=== PATIENT | female | born 1970 | race Caucasian/White ===

== ENCOUNTER 2021-05-13 17:39 | Emergency (ER) | payer BC ==
[~2021-05-13] VITALS: Ht 170.2 cm; Wt 124.7 kg
[~2021-05-13 17:39] MED LIST: CLARITIN10 MG PO; COPAXONE20 MG/1 ML SQ; LISINOPRIL-HCT1 EACH PO; SUDAFED30 MG PO; TYLENOL WITH C1 EACH PO; VITAMIN D250000 UNIT PO
== END 2021-05-13 21:00 | disposition home or self-care (01) ==
LOC: ED 17:39
DX: U07.1 COVID-19 (principal); J40 Bronchitis, not specified as acute or chronic; I10 Essential (primary) hypertension; Z87.891 Personal history of nicotine dependence; Z79.899 Other long term (current) drug therapy
CPT/HCPCS: 99284-25; M0243; Q0244

== ENCOUNTER 2022-05-24 05:56 | Day surgery (SDC) | payer BC ==
[~2022-05-24] VITALS: Ht 170.2 cm; Wt 136.4 kg
--- NOTE | 2022-05-24 08:03 | NUR ---
05/24/22 0803 Smitha Martinez 0754- PT ARRIVES TO PACU NONAROUSABLE TO NOXIOUS STIMULI WITH AN OPA IN PLACE. RESP EVEN AND UNLABORED. OXYGEN SAT HIGH 90'S TO 100% ON 10L VIA MASK. 0756- OXYGEN TITRATED DOWN TO 6L VIA MASK.
--- NOTE | 2022-05-24 09:30 | OR ---
[facility] [address], [place] [address] Signed DATE OF OPERATION: 05/24/2022 SURGEON: Hadley Irizarry MD PREOPERATIVE DIAGNOSES: 1. Maternal grandmother with colon cancer in her late 70s. 2. Mother with colon polyps in her 60s. POSTOPERATIVE DIAGNOSIS: Minimal to moderate internal hemorrhoids. PROCEDURE: Colonoscopy without biopsy. ESTIMATED BLOOD LOSS: None. INDICATIONS: Evie is a 51-year-old obese female with multiple sclerosis, requiring a cane to help ambulate. She was asked to see me for her initial colonoscopy. Her maternal grandmother had colon cancer in her late 70s. Her mother has had colonic polyps removed in her 60s. She has gone back every 2 to 3 years to have additional colonic polyps removed. Evie has no lower GI complaints. In addition, she has a very full face with a heavy chest and abdomen. We asked that she had monitored anesthesia care given those findings. She also has significant postoperative nausea and vomiting. She said the scopolamine patch really helps. We gave her that scopolamine patch today. In the office, I had given her a pamphlet on colonoscopy. She understands the nature of the test. There is risk including, but not limited to gas bloating, crampy abdominal pain, bleeding, perforation requiring surgery, and missed diagnosis. She had expressed understanding and wished to proceed. PROCEDURE NOTE: Evie was taken into our endoscopy suite and placed in the left lateral decubitus position. She was given IV sedation with propofol per our nurse strategic partnership representative. A digital rectal exam was performed and this was unremarkable. She has good sphincter tone. No external hemorrhoids. The adult colonoscope was introduced and advanced under direct visualization of the camera. It took some extra propofol and a little abdominal compression in order to advance the scope into the cecum itself. Her prep was quite excellent. We could easily see the appendiceal orifice and the ileocecal valve. The scope was then slowly withdrawn. We took pictures throughout for photodocumentation. Electronically Signed By: HADLEY IRIZARRY MD 05/24/22 0930 PATIENT NAME: EVIE ECHEVERRIA OPERATIVE REPORT DATE OF : 68 REPORT #: [id number] PHYSICIAN: HADLEY IRIZARRY MD PCP: BONG MILLER MD REPORT IS CONFIDENTIAL AND NOT TO BE RELEASED WITHOUT AUTHORIZATION [facility] [address], [place] [address] Signed No pathology throughout the entire colon or rectum. Upon retroflexion of the scope, she does have minimal to moderate internal hemorrhoid columns. After this, the gas was suctioned out and the colonoscope removed. Evie tolerated the procedure quite well. RECOMMENDATIONS: Evie can return in 5 years for repeat colonoscopy given her family history. Hadley Irizarry MD ALB/MODL /[id number] cc: MD Hadley Ward MD Copies: BONG MILLER MD, ANDREW L MD ~ Electronically Signed By: HADLEY IRIZARRY MD 05/24/22 0930 PATIENT NAME: EVIE ECHEVERRIA OPERATIVE REPORT DATE OF : 68 REPORT #: [id number] PHYSICIAN: HADLEY IRIZARRY MD PCP: BONG MILLER MD REPORT IS CONFIDENTIAL AND NOT TO BE RELEASED WITHOUT AUTHORIZATION
--- NOTE | 2022-05-24 10:34 | NUR ---
PT ALERT,ORIENTED AND HERE FOR HER FIRST SCOPE. PT SEEMED TO DEAL WITH PREP APPROPRIATELY, ALL QUESTIONS ASKED ANSWERED. PT REQUESTED PRAYER, HER AUNT WILL BE HERE AT [place] FOR RIDE. WILL FOLLOW NEEDED
== END 2022-05-24 08:34 | disposition home or self-care (01) ==
LOC: DS 05:56 → OPS 05:56 → DS 07:30 → OPS 07:30 → DS 09:00
PROVIDERS: ATTEND Colon & Rectal Surgery
PROC: 0DJD8ZZ Inspection of Lower Intestinal Tract, Via Natural or Artificial Opening Endoscopic (ICD-10-PCS; principal; 2022-05-24 07:30)
DX: Z12.11 Encounter for screening for malignant neoplasm of colon (principal); K64.8 Other hemorrhoids; G35 Multiple sclerosis; I10 Essential (primary) hypertension; E66.9 Obesity, unspecified; Z80.0 Family history of malignant neoplasm of digestive organs; Z83.71 Family history of colonic polyps
CPT/HCPCS: J2405; J2704; J7121

== ENCOUNTER 2023-07-18 12:21 | Observation (INO) | payer BC ==
[~2023-07-18] VITALS: Ht 170.2 cm; Wt 133.1 kg
[2023-07-18] VITALS (11 sets, daily range): BP systolic 119–151; BP diastolic 63–102
[~2023-07-18 12:21] MED LIST changes: +GABAPENTIN300 MG PO; +GLATIRAMER40 MG/1 ML SUB-Q
--- OUTSIDE RECORDS SUMMARY | 2023-07-18 12:25 | XMS ---
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 ENick VISIT COUNT (12 MO.) 2 [facility] TOTAL 2 NOTE: Visits indicate total known visits. ED/UCC VISIT TRACKING (12 MO.) 07/18/2023 12:[address] [facility] [place] TYPE: Emergency COMPLAINT: - RACING HEART, IRREGULAR BEAT 07/14/2023 12:[address] [facility] [place] TYPE: Emergency COMPLAINT: - R FLANK TO ABD PAIN DIAGNOSES: - Essential (primary) hypertension - Low back pain, unspecified - Multiple sclerosis - Other terminologist (current) drug therapy - Personal history of nicotine dependence INPATIENT VISIT TRACKING (12 MO.) No inpatient visits to display in this time frame [email or web address]
[2023-07-18 12:50] LABS: BASOPHILS 0.2 % (0-2); EOSINOPHILS 0.2 % (0-6); HEMATOCRIT 40.3 % (35.0-50.0); HEMOGLOBIN 12.8 g/dL (12.0-18.0); MCH 26.8 (27-36); MCHC 31.8 g/dl (30-36); MCV 84.4 fl (81-99); MONOCYTES 5.3 % (0-12); NEUTROPHILS 67.3 % (39-80); PLATELET COUNT 302 K/uL (140-440); RBC 4.77 M/ul (4.3-5.7); RDW 14.1 (10.5-15.0)
[2023-07-18 13:08] LABS: ALBUMIN 3.7 g/dL (3.4-5.0); ALBUMIN/GLOBULIN RATIO 1.12 (1.1-2.4); ANION GAP 11.3 (7-21); BILIRUBIN, TOTAL 0.5 ng/dL (0.2-1.0); BUN/CREATININE RATIO 32.29 (6.0-28.6); CALCIUM 8.8 mg/dL (8.5-10.1); CREATININE, SERUM 0.96 mg/dL (0.55-1.02); POTASSIUM 3.3 mmol/L (3.5-5.1)
[2023-07-18 14:17] LABS: INFLUENZA B NAA NEGATIVE (NEGATIVE); RESPIRATORY SYNCYTIAL VIR NAA NEGATIVE (NEGATIVE)
--- NOTE | 2023-07-18 16:45 | NUR ---
PATIENT ARRIVED TO CCU ROOM 126 VIA STRETCH BY THIS RN. PATIENT STOOD AND WALKED INTO BATHROOM WITH CANE AND TOLERATED WELL. PATIENTS HRWITH ACTIVITY WAS UP TO 150 ON ARRIVAL. ONCE PATIENT WAS RESTING BACK IN BED PATIENTSS HR 120-130'S. PATIENT IS ABLE TO FEEL "FLUTTERING" AND COMPLAINS OF SOB WITH ACTIVITY. PATIENTS BREATH SOUNDS CLEAR. BOWEL TONES ACTIVE. PATIENT ARRIVED WITH HER DAUGHTER AT THE BEDSIDE. PATIENT ORIENTED TO ROOM AND PLAN OF CARE.
--- NOTE | 2023-07-18 16:56 | EKG ---
[facility] [address] [facility] [place] [address] Signed Atrial fibrillation with rapid ventricular response Nonspecific ST abnormality Abnormal ECG When compared with ECG of 22-MAY-2022 08:01, Atrial fibrillation has replaced Sinus rhythm Vent. rate has increased BY [address] now depressed in Anterior leads Confirmed by MIGUE GUERRA MD ([id number]) on 07/18/2023 4:56:05 PM Electronically Signed By: MIGUE GUERRA 07/18/23 1656 PATIENT NAME: TRAY ECHEVERRIA Electrocardiogram DATE OF : 68 PHYSICIAN: MIGUE GUERRA REPORT #: [id number] REPORT IS CONFIDENTIAL AND NOT TO BE RELEASED WITHOUT AUTHORIZATION
[2023-07-18] MEDS ORDERED: SUDOGEST30 MG PO (17:34)
[2023-07-18] MEDS ORDERED: VITAMIN D350 MC3 PO (17:34)
--- NOTE | 2023-07-18 17:35 | NUR ---
MED REC COMPLETE
--- NOTE | 2023-07-18 18:15 | NUR ---
THIS RN CALLED AND SPOKE WITH MD GUERRA IN REGARDS TO PATIENTS HR AND PLAN OF CARE. PATIENTS HR IS DOWN TO 80'S BUT IS AVERAGING 110. PATIENT REPORTS FEELING BETTER TONIGHT. PER PATIENTS ORDERS DC AMNIODARONE AND START ORAL COREG. TITRATE DILTIAZEM NEEDED. PATIENTS GTT CURRENTLY AT 15MLS/HR WHICH IS RATE PATIENT ARRIVED FROM ED ON. PATIENT ATE 75% OF HER DINNER.
--- NOTE | 2023-07-18 19:08 | NUR ---
PATIENT PO MEDICATIONS GIVEN. PATIENT TOELRATED WELL. PATIENTS SON IN VISITING. UPDATED PATIENT ON PLAN OF CARE. ALL QUESTIONS ANSWERED. CALL LIGHT IN REACH AND PATIENT CALLS APPROPRIATELY.
--- NOTE | 2023-07-18 19:50 | NUR ---
PT CALLED NURSES STATION FOR ASSISTANCE TO BATHROOM TO READY FOR BED WITH DAUGHTER. PT ALERT AND ORIENTED. STABLE AMBULATION WITH CANE AND STAND BY ASSIST. SHE REPORTS NO PAIN OR NAUSEA AT THIS TIME
--- NOTE | 2023-07-18 21:15 | NUR ---
ROUNDING IN PATIENT ROOM, EDUCATION ON MEDICATION, DISEASE PROCESS. PATIENT HAS GOOD INSIGHT, SHE SAID SHE HAS FAMILY HISTORY OF AFIB. PATIENT EMOTIONAL IN REGARDS TO FAMILY ILLNESSES. PATIENT HAS NO REPORT OF PAIN OR NAUSEA. SHE IS ALERT AND ORIENT.
--- NOTE | 2023-07-18 23:46 | NUR ---
DILTIAZEM GTT ON STANDBY AT THIS TIME. V/S STABLE HEART RATE HAS MAINTAINED BELOW 100'S.
[2023-07-19] VITALS (10 sets, daily range): BP systolic 122–155; BP diastolic 65–110
--- NOTE | 2023-07-19 05:31 | NUR ---
PATIENT ALERT AND ORIENTED THIS AM, SHE REPORTS SHE DOES NOT FEEL NEED TO USE THE BATHROOM AT THIS TIME. SHE DID ASK ABOUT PLAN OF CARE AND IF SHE WOULD NEED TO BE IN HOSPITAL UNTIL CONVERTED BACK TO NSR, THIS RN SAID " WITH NEED TO ADJUST MEDICATIONS TO ORAL AND ENSURE RATE CONTROL AT THE LEAST BEFORE DISCHARGE" SHE SAID BETA BLOCKERS GIVE HER A COUGH, BUT IF NO ALTERNATIVE IS AVAILABLE SHE WILL TAKE A BETA RUBIO. PATIENT SAID "MY BROTHER WAS IN AFIB FOR A YEAR AND THEY TRIED EVERY ROSY OF MEDICATION AND THEN HE FINALLY HAD TO HAVE AN ABLATION PROCEDURE" "I THINK WE ARE JUST RESISTANT TO MEDICATIONS WITH THIS". THIS RN SAID "I WILL BE SURE TO PASS THAT TO DAYSHIFT TO REPORT TO . FRESH WATER PROVIDED, PATIENT HAS NO FURTHER QUESTIONS OR CONCERNS AT THIS TIME.
[2023-07-19 05:36] LABS: BASOPHILS 0.4 % (0-2); EOSINOPHILS 0.8 % (0-6); HEMATOCRIT 36.5 % (35.0-50.0); LYMPHOCYTES 28.6 % (24-44); MCH 27.4 (27-36); MCV 83.1 fl (81-99); MONOCYTES 3.9 % (0-12); NEUTROPHILS 66.3 % (39-80); PLATELET COUNT 280 K/uL (140-440); RBC 4.39 M/ul (4.3-5.7)
[2023-07-19 05:42] LABS: ANION GAP 10.5 (7-21); BUN/CREATININE RATIO 22.47 (6.0-28.6); CALCIUM 8.5 mg/dL (8.5-10.1); CREATININE, SERUM 0.89 mg/dL (0.55-1.02); POTASSIUM 3.5 mmol/L (3.5-5.1)
--- NOTE | 2023-07-19 07:30 | NUR ---
REPORT RECIEVED FROM TENDER COORDINATOR RN. PATIENT RESTING I NBED. PER REPROT PATIENT DILTIAZEM GTT TURNED OFF IN THE NIGHT. PATIENTS HR AT REST REMINAS 80-100. PER REPORT PATIENT DID NOT SLEEP WELL LAST NIGHT.
--- NOTE | 2023-07-19 09:00 | NUR ---
IN TO SEE PATIENTS THIS AM. NEW ORDERS PLACED BY THIS RN WITH VERBAL ORDER FROM MD GUERRA. PATIENT MEDICATIONS ADMINISTERED. PATIENT STATES SOB IS BETTER THIS AM AND DENIES CHEST PAIN. PATIENT HAS CONCERNS IN REGAURDS TO HAVING A.FIB. WILL GIVE PATIENT EDUCATION OF A.FIB AND KANIKA. ALL QUESTIONS ANSWERED WITH MD GUERRA. PATIENT UP TO THE BATHROOM AND SITTING IN THE CHAIR FOR BREAKFAST. PATIENT HR WITH AMBULATION IS 100-130. PATIENT CALL LIGHT IN REACH.
--- NOTE | 2023-07-19 11:00 | NUR ---
this rn updated md that patients hr remains 90-120 at rest. patient deneis sob or "fluttering" as described prior in admission. new orders placed for additional dose of coreg per md mullins. will change night dose to double the amount. no other questions at this time.
--- NOTE | 2023-07-19 12:53 | NUR ---
PATIENTS MOM HERE VISITING. MEDICATIONS WERE GIVEN. MONITORING HR AND BP FOR EFFECTS. WILL GET PATIENT UP AND WALK TO SEE HOW PATIENT DOES THIS AFTERNOON. PATIENT EATING LUNCH. NO OTHER NEEDS AT THIS TIME.
--- NOTE | 2023-07-19 14:07 | NUR ---
This pharmacist faxed a prescription for Eliquis #[id number], 1 PO BID to [facility]. Through her insurance, the copay is $55.
--- NOTE | 2023-07-19 14:30 | NUR ---
PATIENT HAS BEEN UP AND DOWN TO BATHROOM AND CHAIR TODAY WITH NO ISSUES. THIS RN WALKED WITH PATIENT IN HALLWAY THROUGH CCU AND COMPLETED 1 LAP. WHEN PATIENT ARRIVED BACK TO THE ROOM PATIENT REPORTED "I FEEL A LITTLE MORE WINDED AND A LITTLE TIGHTNESS RIGHT IN THE CENTER OF MY CHEST". MD GUERRA IN TO SEE PATIENT. REPORTED FINDINGS. PATIENTS HR WITH WALKING WAS 110-135. TROPONIN LAB COMPLETED AND CONTINUES TO TREND DOWN. MD WILL CALL CONFERENCE INTERPRETER FOR CONSULT OF CARE AND RECOMENDATION.
[2023-07-19] MEDS ORDERED: COREG12.5 MG PO (16:03)
[2023-07-19] MEDS ORDERED: ELIQUIS5 MG PO (16:03)
--- NOTE | 2023-07-19 16:41 | NUR ---
MD GUERRA SPOKE WITH MEDIA PLANNER / BUYER AND PER RECOMMENDATIONS PATIENT IS ON APPROPRIATE TREATMENT AND CAN DC HOME AND FOLLOW-UP WITH PCP ON FRIDAY TO INITIATE CARDIOLOGY REFERAL. PATIENT AGREEABLE TO PLAN OF CARE. PATIENTS HR AT REST REMAINS AVERAGE AROUND 110 AT REST.
[2023-07-19] MEDS ORDERED: HYDROCHLOROTHIA25 MG PO (17:02)
--- NOTE | 2023-07-19 17:40 | NUR ---
PATIENT DRESSED ON HER OWN WITH NO ISSUES. IVS DCD AND WRAPPED WITH COBAND. INSTRUCTED PATIENT TO REMOVE IN ABOUT 15 MINUTES. PATIENT INSTRUCTIONS REVIEWED. EDUCATED PATIENT TO RETURN TO ER WITH WORSENING SYMPTOMS OF SOB OR CHEST PAIN OR WORSENING OF THE "FLUTTER FEELING" PATIENT STATED SHE HAD ON ARRIVAL TO THE HOSPITAL. PATIENT HAS AN APPOINTMENT ON FRIDAY TO FOLLOW-UP WITH MD IN [facility] TO RECENT HOSPITALIZATION. PATIENT SENT WITH EDUCATION ABOUT BLOOD THINNER, A.FIB, ABLATION, AND CARDIOVERSION PATIENT REQUESTED. PATIENT UP AND TRANSFERED TO THE WHEELCHAIR. ALL BELONGINGS SENT WITH PATIENT. PATIENTS DAUGHTER HERE, THIS RN WHEELED PATIENT TO THE FRONT AND ASSISTE DPATIENT TO HER RIDE. NO OTHER QUESTIONS AT THIS TIME.
== END 2023-07-19 17:42 | disposition home or self-care (01) ==
LOC: ED 12:21 → CCU 12:23
PROVIDERS: Emergency Medicine; ADMIT Internal Medicine; ATTEND Internal Medicine
DX: I48.91 Unspecified atrial fibrillation (principal); E87.6 Hypokalemia; G35 Multiple sclerosis; R79.89 Other specified abnormal findings of blood chemistry; D72.829 Elevated white blood cell count, unspecified; Z20.822 Contact with and (suspected) exposure to COVID-19
CPT/HCPCS: 36415; 71045; 80048; 80053; 83735; 84484; 85025; 87502; 93005; 93010; 96365; 96366; 96372; 96374; 96376; 99285-25; A9270; C9803; G0378; J1650; J3490; U0002

== ENCOUNTER 2025-01-28 00:02 | Emergency (ER) | payer BC ==
[~2025-01-28] VITALS: Ht 170.2 cm; Wt 152.0 kg
[~2025-01-28 00:02] MED LIST changes: +COREG12.5 MG PO; +ELIQUIS5 MG PO; +HYDROCHLOROTHIA25 MG PO; +SUDOGEST30 MG PO; +VITAMIN D350 MC3 PO
[2025-01-28] MEDS ORDERED: DULOXETINE HCL30 MG PO (00:17)
[2025-01-28] MEDS ORDERED: LISINOPRIL-HCT1 EACH PO (00:17)
[2025-01-28] MEDS ORDERED: METOPROLOL TARTRATE 5 MG/5 ML VIAL IV ONE (00:30)
[2025-01-28] MEDS ORDERED: LACTATED RINGER'S 1,000 ML IV ONE (00:45)
[2025-01-28 00:54] LABS: BASOPHILS 0.5 % (0-2); EOSINOPHILS 1.8 % (0-6); HEMATOCRIT 38.6 % (35.0-50.0); LYMPHOCYTES 28.6 % (24-44); MCH 27.9 (27-36); MCHC 33.6 g/dl (30-36); MCV 83.1 fl (81-99); MONOCYTES 4.4 % (0-12); NEUTROPHILS 64.7 % (39-80); PLATELET COUNT 273 K/uL (140-440); RBC 4.64 M/ul (4.3-5.7); RDW 14.2 (10.5-15.0)
[2025-01-28 01:19] LABS: ALBUMIN 3.3 g/dL (3.4-5.0); ALBUMIN/GLOBULIN RATIO 0.94 (1.1-2.4); ANION GAP 7.6 (7-21); BILIRUBIN, TOTAL 0.4 mg/dL (0.2-1.0); BUN/CREATININE RATIO 15.95 (6.0-28.6); CALCIUM 8.4 mg/dL (8.5-10.1); CREATININE, SERUM 0.94 mg/dL (0.55-1.02); MAGNESIUM 2.1 mg/dL (1.8-2.4); POTASSIUM 3.6 mmol/L (3.5-5.1); PROTEIN, TOTAL 6.8 g/dL (6.4-8.2); TSH, 3RD GENERATION 4.586 uIU/mL (0.358-3.740)
[2025-01-28 02:07] LABS: BILIRUBIN, URINE NEGATIVE (negative); BLOOD/HGB, URINE NEGATIVE (Negative); KETONE, URINE NEGATIVE (Negative); LEUK ESTERASE, URINE NEGATIVE (negative); NITRITE, URINE NEGATIVE (negative)
[2025-01-28] MEDS ORDERED: dilTIAZem HCL 25 MG/5 ML VIAL IV ONE (02:15)
[2025-01-28] MEDS ORDERED: CARDIZEM30 MG PO (02:34)
[2025-01-28 02:43] LABS: AMPHETAMINES, UR NEGATIVE (NEGATIVE); BARBITURATES, UR NEGATIVE (NEGATIVE); BENZODIAZEPINES, UR NEGATIVE (NEGATIVE); BUPRENORPHINE,UR NEGATIVE (NEGATIVE); COCAINE, UR NEGATIVE (NEGATIVE); MARIJUANA (THC), UR NEGATIVE (NEGATIVE); MDMA, UR NEGATIVE (NEGATIVE); METHADONE, UR NEGATIVE (NEGATIVE); METHAMPHETAMINE, UR NEGATIVE (NEGATIVE); OPIATES, UR NEGATIVE (NEGATIVE); OXYCODONE, UR NEGATIVE (NEGATIVE); PHENCYCLIDINE, UR NEGATIVE (NEGATIVE); TRICYCLIC ANTIDEPRESSANT, UR NEGATIVE (NEGATIVE)
[2025-01-28 03:00] VITALS: BP 117/70
--- NOTE | 2025-01-28 22:00 | EKG ---
[facility] [address] [facility] [place] [address] Signed Atrial fibrillation with rapid ventricular response Nonspecific ST abnormality Abnormal ECG When compared with ECG of 18-JUL-2023 12:32, No significant change was found Confirmed by Les Stone MD () on 01/28/2025 10:00:37 PM Electronically Signed By: LES STONE MD 01/28/252199 PATIENT NAME: TRAY ECHEVERRIA Electrocardiogram DATE OF : 68 PHYSICIAN: LES STONE MD REPORT #: [id number] REPORT IS CONFIDENTIAL AND NOT TO BE RELEASED WITHOUT AUTHORIZATION
[2025-01-29 16:01] LABS: THYROXINE FREE 1.3 ng/dL (0.9-1.7)
== END 2025-01-28 03:00 | disposition home or self-care (01) ==
LOC: ED 00:02
PROVIDERS: Internal Medicine
DX: I48.0 Paroxysmal atrial fibrillation (principal); I10 Essential (primary) hypertension; G47.33 Obstructive sleep apnea (adult) (pediatric); Z87.891 Personal history of nicotine dependence; Z79.01 Long term (current) use of anticoagulants; Z79.899 Other long term (current) drug therapy; Z79.84 Long term (current) use of oral hypoglycemic drugs
CPT/HCPCS: 36415; 80053; 80307; 81003; 83735; 84439; 84443; 84484; 85025; 93005; 93010; 96374; 96375; 99285-25; J7121